=== PATIENT | male | born 1940 | race Caucasian/White ===

== ENCOUNTER 2024-07-13 07:02 | Inpatient (IN) | payer MEDICARE ==
[2024-07-13] MEDS: Ondansetron PF 4 MG/2 ML Vial ONE (09:28)
[2024-07-13 09:41] VITALS: BMI 22.1
[2024-07-13] MEDS: Ondansetron PF 4 MG/2 ML Vial IVP SCH (09:42)
[2024-07-13] MEDS ORDERED: Acetaminophen 325 MG TAB PO PRN (11:10)
[2024-07-13] MEDS: Pantoprazole 40 MG VIAL IVP SCH (11:52)
[2024-07-13] MEDS: Atenolol 25 MG TAB PO SCH (11:52)
[2024-07-13] MEDS: Lactated Ringer's 1,000 ML IV SCH (11:53)
[2024-07-13] MEDS: Albuterol 2.5 MG (3 mL) NEB NEB SCH ×2 (13:48→19:03)
[2024-07-13] MEDS: Morphine 2 MG/ML VIAL SLOW IVP PRN (16:11)
[2024-07-13] MEDS: Tamsulosin HCl 0.4 MG CAP PO SCH (20:01)
[2024-07-13] MEDS: Carbidopa/Levodopa CR 50-200 mg Tablet PO SCH (20:02)
[2024-07-13] MEDS: Ondansetron PF 4 MG/2 ML Vial IVP PRN (20:02)
[2024-07-14 05:47] LABS: #Basophils Less than 0.03 10x3/uL (0.0-0.2); #Eosinophils Less than 0.03 10x3/uL (0.0-0.7); %Basophils 0.1 % (0.0-1.0); %Lymphocytes 5.8 % (21.0-51.0); %Monocytes 8.5 % (0.0-10.0); %Neutrophils 85.4 % (42.0-75.0); Hematocrit 46.3 % (42.0-52.0); Hemoglobin 15.6 g/dL (14.0-18.0); Mean Corpuscular HGB CONC 33.7 g/dL (32.0-36.0); Mean Corpuscular Hemoglobin 33.1 pg (27.0-31.0); Mean Corpuscular Volume 98.1 fL (78.0-98.0); Mean Platelet Volume 10.9 fL (7.4-10.4); Platelet Count 165 10x3/uL (130-400); RBC Distribution Width 14.4 % (11.5-14.5); Red Blood Cell (RBC) Count 4.72 mill/uL (4.70-6.10)
[2024-07-14 06:07] LABS: Anion Gap 14 mmol/L (10-20); BUN (Urea Nitrogen) 33 mg/dL (8.4-25.7); Calc. Creatinine Clearance 64 mL/min (70-130); Calcium 9.9 mg/dL (7.8-10.44); Carbon Dioxide 30 mmol/L (23-31); Chloride 102 mmol/L (98-107); Estimated GFR 86; Glucose 147 mg/dL (83-110); Magnesium 2.2 mg/dL (1.6-2.6); Potassium 4.5 mmol/L (3.5-5.1); Sodium 141 mmol/L (136-145)
[2024-07-14 06:14] LABS: Phosphorus 3.9 mg/dL (2.3-4.7)
[2024-07-14] MEDS: Atenolol 25 MG TAB PO SCH (08:54)
[2024-07-14] MEDS: Pantoprazole 40 MG VIAL IVP SCH (08:59)
[2024-07-14] MEDS: FLUoxetine HCl 20 MG CAP PO SCH (08:59)
[2024-07-14] MEDS ORDERED: Glycerin Adult Supp. (12 ct jar) PR PRN (11:14)
[2024-07-14] MEDS: Glycerin Adult Supp. (12 ct jar) PR SCH (17:22)
[2024-07-15 07:58] LABS: Hematocrit 43.8 % (42.0-52.0); Hemoglobin 14.7 g/dL (14.0-18.0); Mean Corpuscular HGB CONC 33.6 g/dL (32.0-36.0); Mean Corpuscular Hemoglobin 32.9 pg (27.0-31.0); Mean Platelet Volume 11.3 fL (7.4-10.4); Platelet Count 155 10x3/uL (130-400); RBC Distribution Width 14.6 % (11.5-14.5); Red Blood Cell (RBC) Count 4.47 mill/uL (4.70-6.10)
[2024-07-15 08:06] LABS: Anion Gap 11 mmol/L (10-20); BUN (Urea Nitrogen) 39 mg/dL (8.4-25.7); Calc. Creatinine Clearance 68 mL/min (70-130); Calcium 9.6 mg/dL (7.8-10.44); Carbon Dioxide 30 mmol/L (23-31); Chloride 103 mmol/L (98-107); Estimated GFR 87; Glucose 121 mg/dL (83-110); Potassium 4.1 mmol/L (3.5-5.1); Sodium 140 mmol/L (136-145)
[2024-07-15 09:01] LABS: Band 20 % (5-11); Lymphocytes 4 % (21-51); Monocytes 12 % (0-10); Neutrophil 64 % (42-75); Platelet Adequacy Comment Platelets Normal; RBC Morphology Within Normal Limits
[2024-07-15] MEDS: Glycerin Adult Supp. (12 ct jar) PR SCH ×2 (10:20→12:01)
[2024-07-15 13:00] VITALS: BMI 22.1
[2024-07-16 08:28] LABS: Hematocrit 44.4 % (42.0-52.0); Hemoglobin 15.2 g/dL (14.0-18.0); Mean Corpuscular HGB CONC 34.2 g/dL (32.0-36.0); Mean Corpuscular Hemoglobin 33.1 pg (27.0-31.0); Mean Corpuscular Volume 96.7 fL (78.0-98.0); Mean Platelet Volume 11.8 fL (7.4-10.4); Platelet Count 146 10x3/uL (130-400); RBC Distribution Width 14.5 % (11.5-14.5); Red Blood Cell (RBC) Count 4.59 mill/uL (4.70-6.10)
[2024-07-16 08:55] LABS: Band 24 % (5-11); Burr Cells MODERATE= 6-15 cells HPF (0-1); Large Platelets 1.9 % (0-5); Lymphocytes 2 % (21-51); Monocytes 10 % (0-10); Neutrophil 64 % (42-75); Platelet Adequacy Comment Platelets Normal; Poikilocytosis SLIGHT = 6-15 cells HPF (0-5)
[2024-07-16 09:19] LABS: Anion Gap 14 mmol/L (10-20); BUN (Urea Nitrogen) 36 mg/dL (8.4-25.7); Calc. Creatinine Clearance 72 mL/min (70-130); Calcium 9.4 mg/dL (7.8-10.44); Carbon Dioxide 27 mmol/L (23-31); Chloride 102 mmol/L (98-107); Estimated GFR 89; Glucose 129 mg/dL (83-110); Sodium 139 mmol/L (136-145)
[2024-07-17 05:38] LABS: Anion Gap 10 mmol/L (10-20); BUN (Urea Nitrogen) 30 mg/dL (8.4-25.7); Calc. Creatinine Clearance 68 mL/min (70-130); Calcium 9.1 mg/dL (7.8-10.44); Carbon Dioxide 31 mmol/L (23-31); Chloride 104 mmol/L (98-107); Estimated GFR 87; Glucose 97 mg/dL (83-110); Potassium 4.4 mmol/L (3.5-5.1); Sodium 141 mmol/L (136-145)
[2024-07-17 05:52] LABS: Hematocrit 39.8 % (42.0-52.0); Hemoglobin 13.3 g/dL (14.0-18.0); Mean Corpuscular HGB CONC 33.4 g/dL (32.0-36.0); Mean Corpuscular Hemoglobin 32.9 pg (27.0-31.0); Mean Corpuscular Volume 98.5 fL (78.0-98.0); Mean Platelet Volume 11.2 fL (7.4-10.4); Platelet Count 119 10x3/uL (130-400); RBC Distribution Width 14.3 % (11.5-14.5); Red Blood Cell (RBC) Count 4.04 mill/uL (4.70-6.10)
[2024-07-17 06:47] LABS: Anisocytosis SLIGHT = 6-15 cells HPF (0-5); Band 13 % (5-11); Lymphocytes 4 % (21-51); Macrocytosis SLIGHT = 6-15 cells HPF (0-5); Monocytes 19 % (0-10); Neutrophil 64 % (42-75); Platelet Adequacy Comment Platelets Normal; Polychromasia SLIGHT = 2-3 cells HPF (0-2); Toxic Granulation SLIGHT
[2024-07-17] MEDS: Morphine 4 MG/ML VIAL SLOW IVP PRN (21:37)
[2024-07-18 07:06] LABS: Anion Gap 9 mmol/L (10-20); BUN (Urea Nitrogen) 22 mg/dL (8.4-25.7); Calc. Creatinine Clearance 75 mL/min (70-130); Calcium 8.8 mg/dL (7.8-10.44); Carbon Dioxide 30 mmol/L (23-31); Chloride 104 mmol/L (98-107); Estimated GFR 90; Glucose 84 mg/dL (83-110); Potassium 3.5 mmol/L (3.5-5.1); Sodium 139 mmol/L (136-145)
[2024-07-18 07:21] LABS: Hematocrit 36.5 % (42.0-52.0); Hemoglobin 12.5 g/dL (14.0-18.0); Mean Corpuscular HGB CONC 34.2 g/dL (32.0-36.0); Mean Corpuscular Volume 99.2 fL (78.0-98.0); Mean Platelet Volume 11.3 fL (7.4-10.4); Platelet Count 103 10x3/uL (130-400); RBC Distribution Width 14.2 % (11.5-14.5); Red Blood Cell (RBC) Count 3.68 mill/uL (4.70-6.10)
[2024-07-18] MEDS ORDERED: MD-Gastroview 120 ML BOT ONE ×2 (07:23→10:33)
[2024-07-18 08:14] LABS: Band 21 % (5-11); Eosinophils 2 % (0-10); Lymphocytes 6 % (21-51); Monocytes 11 % (0-10); Neutrophil 61 % (42-75); Platelet Adequacy Comment Platelets Decreased; RBC Morphology Within Normal Limits
[2024-07-18] MEDS: Aspirin 81 mg Enteric Coated Tablet PO SCH (08:45)
[2024-07-18] MEDS: Rosuvastatin 5 MG TAB PO SCH (08:45)
[2024-07-18] MEDS: Benzocaine/Menthol 1 LOZ LOZ PO PRN (23:28)
[2024-07-19 05:45] LABS: #Basophils Less than 0.03 10x3/uL (0.0-0.2); %Basophils 0.2 % (0.0-1.0); %Eosinophils 1.1 % (0.0-10.0); %Lymphocytes 10.2 % (21.0-51.0); %Monocytes 15.1 % (0.0-10.0); Hemoglobin 13.1 g/dL (14.0-18.0); Mean Corpuscular HGB CONC 33.6 g/dL (32.0-36.0); Mean Corpuscular Hemoglobin 33.3 pg (27.0-31.0); Mean Corpuscular Volume 99.2 fL (78.0-98.0); Mean Platelet Volume 11.3 fL (7.4-10.4); Platelet Count 104 10x3/uL (130-400); RBC Distribution Width 13.9 % (11.5-14.5); Red Blood Cell (RBC) Count 3.93 mill/uL (4.70-6.10)
[2024-07-19 06:30] LABS: Anion Gap 13 mmol/L (10-20); BUN (Urea Nitrogen) 22 mg/dL (8.4-25.7); Calc. Creatinine Clearance 70 mL/min (70-130); Carbon Dioxide 27 mmol/L (23-31); Chloride 105 mmol/L (98-107); Estimated GFR 88; Glucose 79 mg/dL (83-110); Sodium 141 mmol/L (136-145)
[2024-07-19] MEDS: Albuterol 2.5 MG (3 mL) NEB ONE (14:57)
[2024-07-19] MEDS ORDERED: PROPOFOL 20 ML ONE (15:57)
[2024-07-19] MEDS ORDERED: fentaNYL PF 100 MCG/2 ML SYRINGE ONE (15:57)
[2024-07-19] MEDS ORDERED: Rocuronium Bromide 10 MG/ML (10ML VIAL) ONE (15:58)
[2024-07-19] MEDS ORDERED: Lidocaine 1% PF 5 ML VIAL ONE (15:58)
[2024-07-19] MEDS ORDERED: metroNIDAZOLE 500 MG (100 mL) BAG ONE (16:08)
[2024-07-19] MEDS ORDERED: EPINEPHrine 1 MG/ML VIAL ONE (16:46)
[2024-07-19] MEDS ORDERED: Bupivacaine 0.25% HCL 30 ML VIAL ONE (16:47)
[2024-07-19] MEDS ORDERED: CEFAZOLIN 2 GM VIAL ONE (16:55)
[2024-07-19] MEDS ORDERED: Sodium Chloride 0.9% 100 ML ONE (16:55)
[2024-07-19] MEDS ORDERED: Dexamethasone 20 MG/5 ML VIAL ONE (18:45)
[2024-07-19] MEDS ORDERED: SUGAMMADEX SODIUM 200 MG/2 ML VIAL ONE (18:45)
[2024-07-19] MEDS ORDERED: Ondansetron PF 4 MG/2 ML Vial ONE (18:45)
[2024-07-19] MEDS ORDERED: SUCCINYLCHOLINE/SOD CL,ISO/PF 200 MG/10 ML SYRINGE FS ONE (18:45)
[2024-07-19] MEDS ORDERED: PACU-Morphine 4MG/ML VIAL SLOW IVP PRN (19:06)
[2024-07-19] MEDS ORDERED: Ondansetron HCl/PF 4 MG/2 ML Vial IVP PRN (19:06)
[2024-07-19] MEDS ORDERED: Glucagon 1 MG/ML KIT IM PRN (19:45)
[2024-07-19] MEDS ORDERED: Ondansetron PF 4 MG/2 ML Vial IVP PRN (19:45)
[2024-07-19] MEDS ORDERED: Dextrose 5% in Water 1,000 ML IV PRN (19:45)
[2024-07-19] MEDS ORDERED: Dextrose 50% Abboject 50 ML SYRINGE SLOW IVP PRN (19:45)
[2024-07-19] MEDS: D5 1/2 NS w/20 mEq KCL 1,000 ML IV SCH (21:25)
[2024-07-19] MEDS: Famotidine 20 MG TAB PO SCH (21:26)
[2024-07-19] MEDS: Famotidine/PF 20 mg/2ml Vial SLOW IVP SCH (21:26)
[2024-07-20 05:38] LABS: Anion Gap 11 mmol/L (10-20); BUN (Urea Nitrogen) 20 mg/dL (8.4-25.7); Calc. Creatinine Clearance 67 mL/min (70-130); Calcium 8.8 mg/dL (7.8-10.44); Carbon Dioxide 28 mmol/L (23-31); Chloride 106 mmol/L (98-107); Estimated GFR 87; Glucose 167 mg/dL (83-110); Potassium 3.9 mmol/L (3.5-5.1); Sodium 141 mmol/L (136-145)
[2024-07-20 05:44] LABS: Hematocrit 38.5 % (42.0-52.0); Hemoglobin 12.7 g/dL (14.0-18.0); Mean Corpuscular Hemoglobin 32.9 pg (27.0-31.0); Mean Corpuscular Volume 99.7 fL (78.0-98.0); Mean Platelet Volume 11.2 fL (7.4-10.4); Platelet Count 112 10x3/uL (130-400); RBC Distribution Width 13.9 % (11.5-14.5); Red Blood Cell (RBC) Count 3.86 mill/uL (4.70-6.10)
[2024-07-20 06:44] LABS: Anisocytosis SLIGHT = 6-15 cells HPF (0-5); Band 24 % (5-11); Lymphocytes 1 % (21-51); Macrocytosis SLIGHT = 6-15 cells HPF (0-5); Monocytes 5 % (0-10); Neutrophil 70 % (42-75); Platelet Adequacy Comment Platelets Decreased
[2024-07-20] MEDS: Enoxaparin 30 MG (0.3 mL) SYRINGE SC SCH (09:32)
[2024-07-20] MEDS: HYDROcodone/Acetaminophen 10/325 mg Tablet PO PRN (10:48)
[2024-07-20] MEDS: Amino Acids 4.25 %/Dextrose 5% 1,000 ML IV SCH (21:30)
[2024-07-21 04:45] LABS: Hematocrit 38.7 % (42.0-52.0); Hemoglobin 12.8 g/dL (14.0-18.0); Mean Corpuscular HGB CONC 33.1 g/dL (32.0-36.0); Mean Corpuscular Hemoglobin 33.2 pg (27.0-31.0); Mean Corpuscular Volume 100.5 fL (78.0-98.0); Mean Platelet Volume 10.7 fL (7.4-10.4); Platelet Count 124 10x3/uL (130-400); RBC Distribution Width 14.2 % (11.5-14.5); Red Blood Cell (RBC) Count 3.85 mill/uL (4.70-6.10)
[2024-07-21 04:56] LABS: Anion Gap 10 mmol/L (10-20); BUN (Urea Nitrogen) 20 mg/dL (8.4-25.7); Calc. Creatinine Clearance 63 mL/min (70-130); Carbon Dioxide 26 mmol/L (23-31); Chloride 105 mmol/L (98-107); Estimated GFR 86; Glucose 144 mg/dL (83-110); Potassium 4.1 mmol/L (3.5-5.1); Sodium 137 mmol/L (136-145)
[2024-07-21 05:28] LABS: Band 19 % (5-11); Burr Cells SLIGHT = 2-5 cells HPF (0-1); Lymphocytes 1 % (21-51); Monocytes 10 % (0-10); Neutrophil 70 % (42-75); Platelet Adequacy Comment Platelets Decreased
[2024-07-21] MEDS: Enoxaparin 40 MG (0.4 mL) SYRINGE SC SCH (08:51)
[2024-07-21] MEDS: Calcium Carbonate 500 MG ChewTAB PO PRN (14:15)
[2024-07-22 06:34] LABS: #Basophils Less than 0.03 10x3/uL (0.0-0.2); %Basophils 0.1 % (0.0-1.0); %Eosinophils 0.7 % (0.0-10.0); %Lymphocytes 7.5 % (21.0-51.0); %Monocytes 6.2 % (0.0-10.0); %Neutrophils 85.2 % (42.0-75.0); Hematocrit 31.7 % (42.0-52.0); Mean Corpuscular HGB CONC 34.7 g/dL (32.0-36.0); Mean Corpuscular Hemoglobin 32.8 pg (27.0-31.0); Mean Corpuscular Volume 94.6 fL (78.0-98.0); Mean Platelet Volume 11.8 fL (7.4-10.4); Platelet Count 84 10x3/uL (130-400); RBC Distribution Width 14.1 % (11.5-14.5); Red Blood Cell (RBC) Count 3.35 mill/uL (4.70-6.10)
[2024-07-22 06:44] LABS: Anion Gap 10 mmol/L (10-20); BUN (Urea Nitrogen) 20 mg/dL (8.4-25.7); Calc. Creatinine Clearance 84 mL/min (70-130); Calcium 8.1 mg/dL (7.8-10.44); Carbon Dioxide 26 mmol/L (23-31); Chloride 99 mmol/L (98-107); Estimated GFR 93; Glucose 89 mg/dL (83-110); Potassium 3.5 mmol/L (3.5-5.1); Sodium 131 mmol/L (136-145)
[2024-07-22] MEDS: Albuterol 2.5 MG (3 mL) NEB ONE (07:37)
[2024-07-22] MEDS: Acetylcysteine (MUCOMYST) 200 MG/ML (10 ML VIAL) NEB SCH (11:17)
[2024-07-22] MEDS: Albuterol 2.5 MG (3 mL) NEB NEB SCH (15:29)
[2024-07-23 05:42] LABS: #Basophils Less than 0.03 10x3/uL (0.0-0.2); %Basophils 0.1 % (0.0-1.0); %Eosinophils 1.4 % (0.0-10.0); %Lymphocytes 8.6 % (21.0-51.0); %Monocytes 5.9 % (0.0-10.0); %Neutrophils 83.5 % (42.0-75.0); Hematocrit 31.1 % (42.0-52.0); Hemoglobin 10.8 g/dL (14.0-18.0); Mean Corpuscular HGB CONC 34.7 g/dL (32.0-36.0); Mean Corpuscular Volume 95.1 fL (78.0-98.0); Mean Platelet Volume 11.4 fL (7.4-10.4); Platelet Count 92 10x3/uL (130-400); RBC Distribution Width 13.9 % (11.5-14.5); Red Blood Cell (RBC) Count 3.27 mill/uL (4.70-6.10)
[2024-07-23 06:19] LABS: Anion Gap 11 mmol/L (10-20); Calc. Creatinine Clearance 83 mL/min (70-130); Calcium 8.2 mg/dL (7.8-10.44); Carbon Dioxide 25 mmol/L (23-31); Chloride 105 mmol/L (98-107); Estimated GFR 93; Glucose 119 mg/dL (83-110); Potassium 3.5 mmol/L (3.5-5.1); Sodium 137 mmol/L (136-145)
[2024-07-23 06:53] LABS: BUN (Urea Nitrogen) 15 mg/dL (8.4-25.7)
[2024-07-23] MEDS: Methocarbamol 500 MG TAB PO PRN (18:21)
[2024-07-24] MEDS: Albuterol 2.5 MG (3 mL) NEB ONE (04:46)
[2024-07-24 05:17] LABS: Anion Gap 12 mmol/L (10-20); BUN (Urea Nitrogen) 10 mg/dL (8.4-25.7); Calc. Creatinine Clearance 91 mL/min (70-130); Calcium 8.3 mg/dL (7.8-10.44); Carbon Dioxide 22 mmol/L (23-31); Chloride 106 mmol/L (98-107); Estimated GFR 95; Glucose 93 mg/dL (83-110); Potassium 3.6 mmol/L (3.5-5.1); Sodium 136 mmol/L (136-145)
[2024-07-24 05:51] LABS: #Basophils Less than 0.03 10x3/uL (0.0-0.2); %Basophils 0.2 % (0.0-1.0); %Eosinophils 1.6 % (0.0-10.0); %Monocytes 5.7 % (0.0-10.0); %Neutrophils 85.2 % (42.0-75.0); Hematocrit 33.1 % (42.0-52.0); Hemoglobin 11.2 g/dL (14.0-18.0); Mean Corpuscular HGB CONC 33.8 g/dL (32.0-36.0); Mean Corpuscular Hemoglobin 32.2 pg (27.0-31.0); Mean Corpuscular Volume 95.1 fL (78.0-98.0); Mean Platelet Volume 10.7 fL (7.4-10.4); Platelet Count 102 10x3/uL (130-400); RBC Distribution Width 14.4 % (11.5-14.5); Red Blood Cell (RBC) Count 3.48 mill/uL (4.70-6.10)
[2024-07-24] MEDS: Pantoprazole DR 40 MG TAB PO SCH (09:12)
[2024-07-25 06:27] LABS: #Basophils Less than 0.03 10x3/uL (0.0-0.2); %Eosinophils 1.6 % (0.0-10.0); %Lymphocytes 9.5 % (21.0-51.0); %Monocytes 6.8 % (0.0-10.0); %Neutrophils 81.5 % (42.0-75.0); Hematocrit 29.4 % (42.0-52.0); Hemoglobin 10.1 g/dL (14.0-18.0); Mean Corpuscular HGB CONC 34.4 g/dL (32.0-36.0); Mean Corpuscular Hemoglobin 33.3 pg (27.0-31.0); Mean Platelet Volume 10.5 fL (7.4-10.4); Platelet Count 123 10x3/uL (130-400); RBC Distribution Width 14.3 % (11.5-14.5); Red Blood Cell (RBC) Count 3.03 mill/uL (4.70-6.10)
[2024-07-25 06:56] LABS: Anion Gap 9 mmol/L (10-20); BUN (Urea Nitrogen) 10 mg/dL (8.4-25.7); Calc. Creatinine Clearance 84 mL/min (70-130); Calcium 8.3 mg/dL (7.8-10.44); Carbon Dioxide 28 mmol/L (23-31); Chloride 103 mmol/L (98-107); Estimated GFR 93; Glucose 87 mg/dL (83-110); Potassium 3.5 mmol/L (3.5-5.1); Sodium 136 mmol/L (136-145)
[2024-07-25 15:40] VITALS: BP 113/61; TEMP 98.1
== END 2024-07-25 17:03 | DRG 329 ==
LOC: SURG A 09:19 → OBSVTOIN 14:30
PROVIDERS: ADMIT Student in an Organized Health Care Education/Training Program; ATTEND Hospitalist
PROC: 0D9670Z Drainage of Stomach with Drainage Device, Via Natural or Artificial Opening (ICD-10-PCS; principal; 2024-07-13)
PROC: 0DB80ZZ Excision of Small Intestine, Open Approach (ICD-10-PCS; 2024-07-19)
DX: K56.609 Unspecified intestinal obstruction, unspecified as to partial versus complete obstruction (principal); K55.019 Acute (reversible) ischemia of small intestine, extent unspecified; E44.0 Moderate protein-calorie malnutrition; I25.10 Atherosclerotic heart disease of native coronary artery without angina pectoris; I10 Essential (primary) hypertension; K21.9 Gastro-esophageal reflux disease without esophagitis; G20.A1 Parkinson's disease without dyskinesia, without mention of fluctuations; K59.00 Constipation, unspecified; D69.6 Thrombocytopenia, unspecified; N40.0 Benign prostatic hyperplasia without lower urinary tract symptoms; M10.9 Gout, unspecified; E78.5 Hyperlipidemia, unspecified; Z79.899 Other long term (current) drug therapy; Z95.5 Presence of coronary angioplasty implant and graft; Z68.22 Body mass index [BMI] 22.0-22.9, adult
CPT/HCPCS: 36415; 36416; 71045; 74018; 74250; 80048; 83735; 84100; 85025; 88307; 93005; 93010; 94640; A4314; A4649; J0171; J0665; J1100; J1650; J2272; J2405; J2470; J2704; J3480; J3490; J7120; J7608; J7611; Q9963